=== PATIENT | male | born 1970 | race Caucasian/White ===

== ENCOUNTER 2018-12-08 22:18 | Observation (INO) | payer OTHER ==
[2018-12-08] MEDS ORDERED: ASPIRIN 81 MG CHEWABLE TABLET ONE (22:47)
[2018-12-08] MEDS ORDERED: NITROGLYCERIN 0.4 MG/TAB SL ONE (22:48)
[2018-12-08 22:56] LABS: Absolute Lymphocytes (CBC) 2.5 K/uL (0.7-4.9); Basophils % 0.6 % (0-1.3); Hematocrit 39.9 % (39.6-49.0); Lymphocytes % 31.2 % (15.3-44.8); MPV 9.1 fL (7.6-11.3); RBC Red Blood Cell Count 4.53 M/uL (4.33-5.43)
[2018-12-08 23:16] LABS: BUN Blood Urea Nitrogen 15 mg/dL (7-18); Bicarbonate 27 mmol/L (21-32); Glucose Level 138 mg/dL (74-106); NT PRO-BNP 53 pg/mL (<125); Potassium 3.8 mmol/L (3.5-5.1); Sodium Level 141 mmol/L (136-145); Troponin (Emerg Dept Use Only) < 0.02 ng/mL (0.0-0.045)
[2018-12-08] MEDS ORDERED: NA CHLORIDE 0.9% 500 ML ONE (23:34)
--- NOTE | 2018-12-08 23:43 | ER ---
Nurse's Notes [facility] Name: Roger Jonas Age: 48 yrs Sex: Male : 1970 Arrival Date: 12/08/2018 Time: 22:18 Bed 6 Private MD: Diagnosis: Chest pain, unspecified Presentation: 12/08 22:20 Presenting complaint: Patient states: that he is having severe chest pain that radiates fc to his back and left shoulder. Originally started at 1700 and then got somewhat better. Came back strong at 2115. Positive for shortness of breath and nausea, denies any vomiting. Transition of care: patient was not received from another setting of care. Onset of symptoms was December 08, 2018 at 17:00. Risk Assessment: Do you want to hurt yourself or someone else? Patient reports no desire to harm self or others. Initial Sepsis Screen: Does the patient meet any 2 criteria? No. Patient's initial sepsis screen is negative. Does the patient have a suspected source of infection? No. Patient's initial sepsis screen is negative. Care prior to arrival: None. 22:20 Method Of Arrival: Wheelchair 22:20 Acuity: DANIEL 2 fc Historical: - Allergies: 22:41 Percocet; fc - Home Meds: 22:41 Lyrica 150 mg Oral 1 in am, 1 at noon and 2 at night [Active]; lamotrigine 100 mg oral fc tr24 nightly [Active]; basaglar 25 unit nightly [Active]; aspirin 325 mg Oral TbEC 1 tab once daily [Active]; lisinopril 5 mg Oral tab 1 tab twice a day [Active]; glimepiride 2 mg Oral tab 1 tab once daily [Active]; atorvastatin 40 mg oral tab 1 tab once daily [Active]; quetiapine 50 mg oral tab 1 in am and 2 at night [Active]; Coreg 3.125 mg Oral tab 1 tab 2 times per day [Active]; omeprazole 20 mg Oral cpDR 1 cap once daily [Active]; - PMHx: 22:41 Depression; Hypertension; High Cholesterol; GERD; CAD; CHF; Myocardial infarction; fc - PSHx: 22:41 left shoulder; left knee; Hernia repair; Appendectomy; fc - Immunization history:: Last tetanus immunization: up to date. - Social history:: Smoking status: Patient/guardian denies using tobacco, Patient/guardian denies using alcohol, street drugs. - Ebola Screening: : Patient negative for fever greater than or equal to 101.5 degrees Fahrenheit, and additional compatible Ebola Virus Disease symptoms Patient denies exposure to infectious person Patient denies travel to an Ebola-affected area in the 21 days before illness onset. - Family history:: not pertinent. - Hospitalizations: : No recent hospitalization is reported. Screenin:20 Abuse screen: Denies threats or abuse. Nutritional screening: No deficits noted. fc Tuberculosis screening: No symptoms or risk factors identified. Fall Risk None identified. Assessment: 23:39 General: Appears in no apparent distress. uncomfortable, Behavior is calm, cooperative, tl1 appropriate for age. Pain: Complains of pain in anterior aspect of left upper chest and left breast Pain radiates to back and left arm Pain currently is 7 out of 10 on a pain scale. Quality of pain is described as sharp, shooting, Pain began approx 6 hours BACKER UP Is continuous. Neuro: Level of Consciousness is awake, alert, obeys commands, Oriented to person, place, time, situation. Cardiovascular: Capillary refill < 3 seconds JVD is absent Patient's skin is warm and dry. Pulses are all present. Chest pain is described as severe, quality is sharp, stabbing, is located in left radiates to left arm(s) back began approx 6 hours BACKER UP. Respiratory: Reports shortness of breath at rest Airway is patent Trachea midline Respiratory effort is even, unlabored, Respiratory pattern is regular, Breath sounds are clear bilaterally. GI: Abdomen is round obese, Bowel sounds present X 4 quads. Abd is soft and non tender X 4 quads. Reports nausea. : No signs and/or symptoms were reported regarding the genitourinary system. EENT: No signs and/or symptoms were reported regarding the EENT system. 12/09 00:30 Reassessment: Patient appears in no apparent distress at this time. Patient is alert, lp1 oriented x 3, equal unlabored respirations, skin warm/dry/pink. Patient aware of admission. Vital Signs: 12/08 22:20 BP 126 / 71; Pulse 71; Resp 18; Temp 98.1(O); Pulse Ox 99% on R/A; Weight 152.86 kg fc (R); Height 5 ft. 7 in. (170.18 cm) (R); Pain 8/10; 22:56 BP 110 / 59; Pulse 72; Resp 16; Pulse Ox 97% ; Pain 6/10; tl1 23:38 BP 110 / 62; Pulse 73; Resp 17; Pulse Ox 98% on R/A; Pain 6/10; tl1 12/09 00:30 BP 112 / 74; Pulse 60; Resp 18; Pulse Ox 98% on R/A; lp1 12/08 22:20 Body Mass Index 52.78 (152.86 kg, 170.18 cm) ED Course: 12/08 22:18 Patient arrived in ED. am2 22:20 Arm band placed on Patient placed in an exam room, on a stretcher. fc 22:20 Patient has correct armband on for positive identification. Placed in gown. Bed in low fc position. Call light in reach. Side rails up X2. gas leak tester on. Pulse ox on. NIBP on. 22:20 No provider procedures requiring assistance completed. fc 22:25 Stas Davis MD is Attending Physician. rn 22:27 Abimbola Murrell, GRETEL is Primary Nurse. lp1 22:34 Triage completed. fc 22:37 EKG done, by ED staff, reviewed by Stas Davis MD. ag4 22:53 XRAY Chest (1 view) In Process Unspecified. EDMS 22:55 Inserted saline lock: 20 gauge in right antecubital area, using aseptic technique. tl1 Blood collected. Patient maintains SpO2 saturation greater than 95% on room air. 23:42 Mor Sykes DO is Hospitalizing Provider. rn 12/09 00:47 Patient admitted, IV remains in place. fc Administered Medications: 12/08 22:49 Drug: Nitroglycerin 0.4 mg Route: Sublingual; tl1 23:00 Follow up: Response: No adverse reaction; No change in condition; Blood pressure is tl1 lowered 22:49 Drug: Aspirin Chewable Tablet 324 mg Route: PO; tl1 23:30 Follow up: Response: No adverse reaction; No change in condition tl1 23:38 Drug: NS 0.9% 500 ml Route: IV; Rate: bolus; Site: right antecubital; tl1 12/09 00:08 Follow up: IV Status: Completed infusion; IV Intake: 500ml tl1 Intake: 00:08 IV: 500ml; Total: 500ml. tl1 Outcome: 12/08 23:42 Decision to Hospitalize by Provider. rn 12/09 00:46 Admitted to Tele accompanied by tech, room 213, with chart, Report called to Ban holguin Condition: good Discharge instructions given to patient, family, Instructed on the need for admit, Demonstrated understanding of instructions. 01:18 Patient left the ED. tl1 Signatures: Dispatcher [employer] EDMargaret Reyes RN RN Stas Diaz MD MD rn Pena, Laura, RN RN lp1 Marifer Beth RN RN tl1 Elsa Rojo Adan ag4
--- NOTE | 2018-12-08 23:43 | EDPHYS ---
Physician Documentation [facility] Name: Roger Jonas Age: 48 yrs Sex: Male : 1970 Arrival Date: 12/08/2018 Time: 22:18 Bed 6 Private MD: ED Physician Stas Davis HPI: 12/08 22:38 This 48 yrs old Male presents to ER via Wheelchair with complaints of Chest rn Pain > 30 y/o. 22:38 The patient or guardian reports chest pain that is located primarily in the substernal rn area. Onset: today. The pain radiates to the left shoulder, Associated signs and symptoms: The patient has no apparent associated signs or symptoms, Pertinent negatives: abdominal pain, diaphoresis, near syncope, palpitations, shortness of breath, syncope, vomiting. The chest pain is described as a heaviness. Duration: The patient or guardian reports multiple episodes, that are intermittent. Modifying factors: The symptoms are alleviated by nothing. the symptoms are aggravated by nothing. Severity of pain: At its worst the pain was mild in the emergency department the pain is unchanged. The patient has experienced similar episodes in the past. Reports hx of CAD, reports increase in chest pain today, not completely going away, no fever/cough/sob/abd pain, + radiation to left shoulder and back. . Historical: - Allergies: 22:41 Percocet; fc - Home Meds: 22:41 Lyrica 150 mg Oral 1 in am, 1 at noon and 2 at night [Active]; lamotrigine 100 mg oral fc tr24 nightly [Active]; basaglar 25 unit nightly [Active]; aspirin 325 mg Oral TbEC 1 tab once daily [Active]; lisinopril 5 mg Oral tab 1 tab twice a day [Active]; glimepiride 2 mg Oral tab 1 tab once daily [Active]; atorvastatin 40 mg oral tab 1 tab once daily [Active]; quetiapine 50 mg oral tab 1 in am and 2 at night [Active]; Coreg 3.125 mg Oral tab 1 tab 2 times per day [Active]; omeprazole 20 mg Oral cpDR 1 cap once daily [Active]; - PMHx: 22:41 Depression; Hypertension; High Cholesterol; GERD; CAD; CHF; Myocardial infarction; fc - PSHx: 22:41 left shoulder; left knee; Hernia repair; Appendectomy; fc - Immunization history:: Last tetanus immunization: up to date. - Social history:: Smoking status: Patient/guardian denies using tobacco, Patient/guardian denies using alcohol, street drugs. - Ebola Screening: : Patient negative for fever greater than or equal to 101.5 degrees Fahrenheit, and additional compatible Ebola Virus Disease symptoms Patient denies exposure to infectious person Patient denies travel to an Ebola-affected area in the 21 days before illness onset. - Family history:: not pertinent. - Hospitalizations: : No recent hospitalization is reported. ROS: 22:38 Constitutional: Negative for fever, chills, and weight loss, Eyes: Negative for injury, rn pain, redness, and discharge, Neck: Negative for injury, pain, and swelling, Cardiovascular: Negative for palpitations, and edema, Respiratory: Negative for shortness of breath, cough, wheezing, and pleuritic chest pain, Abdomen/GI: Negative for abdominal pain, nausea, vomiting, diarrhea, and constipation, MS/Extremity: Negative for injury and deformity, Skin: Negative for injury, rash, and discoloration, Neuro: Negative for headache, weakness, numbness, tingling, and seizure. Exam: 22:38 Constitutional: Overweight male, no acute distress Head/Face: Normocephalic, rn atraumatic. Eyes: Pupils equal round and reactive to light, extra-ocular motions intact. Lids and lashes normal. Conjunctiva and sclera are non-icteric and not injected. Cornea within normal limits. Periorbital areas with no swelling, redness, or edema. Cardiovascular: Regular rate and rhythm. No pulse deficits. Respiratory: Lungs have equal breath sounds bilaterally, clear to auscultation. No increased work of breathing, no retractions or nasal flaring. Abdomen/GI: soft, non-tender MS/ Extremity: Pulses equal, no cyanosis. Neurovascular intact. Full, normal range of motion. Equal circumference. Neuro: Awake and alert, GCS 15, oriented to person, place, time, and situation. Cranial nerves II-XII grossly intact. Motor strength 5/5 in all extremities. Sensory grossly intact. Vital Signs: 22:20 BP 126 / 71; Pulse 71; Resp 18; Temp 98.1(O); Pulse Ox 99% on R/A; Weight 152.86 kg fc (R); Height 5 ft. 7 in. (170.18 cm) (R); Pain 8/10; 22:56 BP 110 / 59; Pulse 72; Resp 16; Pulse Ox 97% ; Pain 6/10; tl1 23:38 BP 110 / 62; Pulse 73; Resp 17; Pulse Ox 98% on R/A; Pain 6/10; tl1 12/09 00:30 BP 112 / 74; Pulse 60; Resp 18; Pulse Ox 98% on R/A; lp1 12/08 22:20 Body Mass Index 52.78 (152.86 kg, 170.18 cm) fc MDM: 12/08 22:25 Patient medically screened. rn 23:40 Differential diagnosis: acute myocardial infarction, acute pericarditis, coronary rn artery disease stable angina, unstable angina. The patient was given aspirin in the Emergency Department. Data reviewed: vital signs, nurses notes, lab test result(s), EKG, radiologic studies, plain films, and as a result, I will admit patient. Counseling: I had a detailed discussion with the patient and/or guardian regarding: the historical points, exam findings, and any diagnostic results supporting the discharge/admit diagnosis, lab results, radiology results, the need for further work-up and treatment in the hospital. Response to treatment: the patient's symptoms have mildly improved after treatment, and as a result, I will admit patient. Admission orders: after a detailed discussion of the patient's condition and case, the admit orders are written by me. ED course: Pt with known CAD and CHF, HTN/HLD, previous UT, will admit given new chest pain radiating to left shoulder/back. No ischemic changes on ECG. . 12/08 22:35 Order name: Basic Metabolic Panel; Complete Time: 23:39 rn 12/08 22:35 Order name: CBC with Diff; Complete Time: 23:39 rn 12/08 22:35 Order name: NT PRO-BNP; Complete Time: 23:39 rn 12/08 22:35 Order name: Troponin (emerg Dept Use Only); Complete Time: 23:39 rn 12/08 22:35 Order name: XRAY Chest (1 view) rn 12/08 22:35 Order name: EKG; Complete Time: 22:36 rn 12/08 22:35 Order name: Cardiac monitoring; Complete Time: 22:55 rn 12/08 22:35 Order name: EKG - Nurse/Tech; Complete Time: 22:37 rn 12/08 22:35 Order name: IV Saline Lock; Complete Time: 22:55 rn 12/08 22:35 Order name: Labs collected and sent; Complete Time: 22:55 rn 12/08 22:35 Order name: O2 Per Protocol; Complete Time: 22:55 rn 12/08 22:35 Order name: O2 Sat Monitoring; Complete Time: 22:55 rn Administered Medications: 22:49 Drug: Nitroglycerin 0.4 mg Route: Sublingual; tl1 23:00 Follow up: Response: No adverse reaction; No change in condition; Blood pressure is tl1 lowered 22:49 Drug: Aspirin Chewable Tablet 324 mg Route: PO; tl1 23:30 Follow up: Response: No adverse reaction; No change in condition tl1 23:38 Drug: NS 0.9% 500 ml Route: IV; Rate: bolus; Site: right antecubital; tl1 12/09 00:08 Follow up: IV Status: Completed infusion; IV Intake: 500ml tl1 Disposition: 12/08/18 23:42 Hospitalization ordered by Mor Sykes for Observation. Preliminary diagnosis is Chest pain, unspecified. - Bed requested for Telemetry/MedSurg (observation). - Status is Observation. tl1 - Condition is Stable. - Problem is new. - Symptoms have improved. UTI on Admission? No Signatures: Dispatcher [employer] EDMS Renetta Darby RN RN mw Chretien, Felicia, RN RN fc Nieto, Roman, MD MD rn Lasagna, Tonya RN RN tl1 Corrections: (The following items were deleted from the chart) 00:30 12/08 23:42 Hospitalization Ordered by Mor Sykes DO for Observation. Preliminary mw diagnosis is Chest pain, unspecified. Bed requested for Telemetry/MedSurg (observation). Status is Observation. Condition is Stable. Problem is new. Symptoms have improved. UTI on Admission? No. rn 12/09 01:18 00:30 12/08/2018 23:42 Hospitalization Ordered by Mor Sykes DO for Observation. tl1 Preliminary diagnosis is Chest pain, unspecified. Bed requested for Telemetry/MedSurg (observation). Status is Observation. Condition is Stable. Problem is new. Symptoms have improved. UTI on Admission? No. mw
--- NOTE | 2018-12-09 00:36 | P.HP ---
Certification for Inpatient Patient admitted to: Observation With expected LOS: <2 Midnights Patient will require the following post-hospital care: None Practitioner: I am a practitioner with admitting privileges, knowledge of patient current condition, hospital course, and medical plan of care. Services: Services provided to patient in accordance with Admission requirements found in Title 42 Section 412.3 of the Code of Federal Regulations Patient History Date of Service: 12/09/18 Primary Care Provider: Lily Silver NP Reason for admission: Chest pain History of Present Illness: 48-year-old male presented to the emergency room with chest pain. Patient with underlying history of CAD without stent, hypertension, diabetes mellitus type 2 non-insulin dependent with diabetic neuropathy, hyperlipidemia, GERD, obstructive sleep apnea, CHF and depression. Patient presented to the ER with chest pain. This started around 4:00 p.m.. He was mainly to the center of the chest. It radiated through the back to the shoulders. It also radiated to the left arm. It was associated with some shortness of breath and palpitation. Patient recently moved from [place] early this year. He reports having history of AK 3 years ago. No stent was required. He also reported history of CHF with prior ejection fraction around 30% 3 years ago. He reports repeat echocardiogram done in [place] last year was around 50%. In the ER patient evaluated. Patient was given nitro with some improvement. Vital signs stable. Hemoglobin 13.4, sodium 141, potassium 3.8. BUN of 15, creatinine 0.9 with a GFR of 81. Glucose 138. BNP unremarkable. Troponin unremarkable. No significant EKG changes noted. Patient was admitted for observation and further evaluation. When I saw the patient in ER, he appeared comfortable. Home medications list reviewed: Yes - Past Medical/Surgical History Diabetic: Yes -: Diabetes mellitus type 2, non-insulin dependent -: Diabetic neuropathy -: Hypertension -: Hyperlipidemia -: CAD with no prior stent -: Depression -: Obstructive sleep apnea -: Systolic CHF -: Obesity -: Left shoulder repair -: Left knee surgery -: Hernia repair -: Appendectomy Psychosocial/ Personal History: Patient is - Family History Mother -: Heart disease - Social History Smoking Status: Never smoker Alcohol use: Yes CD- Drugs: No Caffeine use: Yes Place of Residence: Home Review of Systems General: As per HPI Eyes: Unremarkable ENT: Unremarkable Respiratory: Shortness of Breath, As per HPI Cardiovascular: Chest Pain, Palpitations, As per HPI Gastrointestinal: Unremarkable Genitourinary: Unremarkable Musculoskeletal: Unremarkable Integumentary: Unremarkable Neurological: Unremarkable Lymphatics: Unremarkable Physical Examination - Physical Exam General: Alert, In no apparent distress, Oriented x3, Cooperative HEENT: Atraumatic, Normocephalic, PERRLA, Mucous membr. moist/pink Neck: Supple, No Thyromegaly Respiratory: Clear to auscultation bilaterally, Normal air movement Cardiovascular: Normal pulses, Regular rate/rhythm Gastrointestinal: Normal bowel sounds, Soft and benign, Non-distended, No tenderness, No masses, No rebound, No guarding Musculoskeletal: No erythema, No tenderness, No warmth Integumentary: No tenderness/swelling, No erythema, No warmth, No cyanosis Neurological: Normal speech, Normal strength at 5/5 x4 extr, Normal tone, Normal affect - Studies Laboratory Data (last 24 hrs) 12/08/18 22:35: WBC 8.1, Hgb 13.4 L, Hct 39.9, Plt Count 175 12/08/18 22:35: Sodium 141, Potassium 3.8, BUN 15, Creatinine 0.98, Glucose 138 H Assessment and Plan - Plan Impression: Chest pain with history of CAD and AK requiring no stent Hypertension Diabetes mellitus type 2, [id number] Diabetic neuropathy Hyperlipidemia Obstructive sleep apnea GERD History of systolic CHF Depression Obesity Plan: Chest pain with history of CAD and AK requiring no stent: Patient will be admitted for observation and further evaluation. Will monitor cardiac enzymes. Will continue monitor on telemetry. Will place on DVT prophylaxis-Lovenox. Will continue with aspirin, carvedilol and lisinopril. Will provide nitroglycerin as needed. Will keep the patient NPO at this time in anticipation for cardiac evaluation. Cardiology has been consulted. Await further recommendation. Heart score calculated-4. Patient with multiple risk factors. Patient may require further cardiac evaluation. Echocardiogram ordered. Outpatient versus inpatient evaluation to be considered. Likely discharge within 24 hr if workup unremarkable and cleared by cardiology. Daytime hospitalist team will continue his care. Hypertension: Restart home medication of lisinopril 5 mg 1 pill twice daily and carvedilol 3.25 mg 1 pill twice daily. Will adjust accordingly. Diabetes mellitus type 2, [id number]: Will provide insulin sliding scale and Accu-Cheks. Will hold off on his oral medication. Will obtain A1c Diabetic neuropathy: Will continue with his home medication Lyrica 150 mg every a.m. and noontime. Patient also takes 300 mg at night. Hyperlipidemia: Continue with Lipitor 40 mg daily. Will obtain fasting lipid Obstructive sleep apnea: Patient reports history of sleep apnea. Recommend follow up with PCP to further monitor and address. Patient will likely require sleep study to obtain CPAP machine. GERD: Will provide medication. History of systolic CHF: Patient reports having ejection fraction around 30% 3 years ago. He reports last echocardiogram done a year ago was showing ejection fraction around 50%. No evidence of acute CHF at this time. Echocardiogram obtained. Depression: Continue home medication Lamictal 100 mg at bedtime Obesity: Will calculate BMI. Will address lifestyle modification education. Discharge Plan: Home Plan to discharge in: 24 Hours - Advance Directives Does patient have a Living Will: No Does patient have a Durable POA for Healthcare: No - Code Status/Comfort Care Code Status Assessed: Yes (Patient is full code) Time Spent Managing Pts Care (In Minutes): 55
[2018-12-09] MEDS ORDERED: NITROGLYCERIN 0.4 MG/TAB SL PRN (01:05)
[2018-12-09] MEDS ORDERED: TRAMADOL HCL 50 MG TAB PO PRN (01:05)
[2018-12-09] MEDS ORDERED: ONDANSETRON 4 MG/2 ML VIAL IV PRN (01:05)
[2018-12-09] MEDS ORDERED: ACETAMINOPHEN 500 MG TAB PO PRN (01:05)
--- NOTE | 2018-12-09 05:30 | EKG ---
Test Date: 2018-12-08 Test Time: 22:26:32 Cafeteria Server: [id number] MEASUREMENT RESULTS: Intervals: Rate: 68 MN: 156 QRSD: 112 QT: 426 QTc: 452 [place]k: P: 21 MN: 156 QRS: 53 T: 41 INTERPRETIVE STATEMENTS: Normal sinus rhythm Normal ECG No previous ECG available for comparison Electronically Signed On 12-09-18 05:29:47 CDT by Michael Maloney
[2018-12-09] MEDS: CARVEDILOL 3.125 MG TAB PO SCH ×2 (06:00→17:12)
[2018-12-09] MEDS: PREGABALIN 150 MG CAP PO SCH ×2 (06:08→12:46)
[2018-12-09 06:19] LABS: CKMB Creatine Kinase MB 1.2 ng/mL (0.3-3.6); Creatine Phosphokinase 87 U/L (39-308); HDL Cholesterol 31 mg/dL (40-60); LDL Cholesterol, Calculated 50 (<130); Troponin I < 0.02 ng/mL (0.0-0.045)
[2018-12-09] MEDS ORDERED: PANTOPRAZOLE 40MG TABLET PO SCH (06:30)
[2018-12-09] MEDS: INSULIN -REGULAR HUMAN 50 UNIT/0.5 ML ML SQ SCH ×3 (07:30→16:20)
--- NOTE | 2018-12-09 08:33 | RAD REPORT ---
EXAM DESCRIPTION: Marlena Single View12/08/2018 10:53 pm CLINICAL HISTORY: Chest pain COMPARISON: none FINDINGS: Mild prominence of the right hilum Lungs otherwise appear clear. Heart is normal size IMPRESSION: Mild prominence of the right hilum. This may all represent confluence of pulmonary vesse ls. It is recommended that the patient have PA and lateral chest series is recommended for further ev aluation
[2018-12-09] MEDS ORDERED: LISINOPRIL 5 MG TAB PO SCH (09:00)
[2018-12-09] MEDS ORDERED: ASPIRIN EC 81 MG TAB PO SCH (09:00)
[2018-12-09] MEDS ORDERED: POTASSIUM CL SA 10 MEQ TAB PO ONE (09:00)
[2018-12-09] MEDS ORDERED: ENOXAPARIN 40 MG/0.4 ML SQ SCH (09:00)
[2018-12-09 09:33] LABS: Urine Appearance CLEAR; Urine Bilirubin NEGATIVE (NEG); Urine Blood NEGATIVE (NEG); Urine Color YELLOW; Urine Glucose NEGATIVE (NEG); Urine Protein NEGATIVE (NEG); Urine Specific Gravity >=1.030 (1.005-1.030); Urine pH 5.5 (5.0-7.0)
[2018-12-09 09:34] LABS: Urine Microscopic Reflex NO UMIC
[2018-12-09 09:43] LABS: Barbiturates NEGATIVE (NEGATIVE); Benzodiazepines NEGATIVE (NEGATIVE); Cocaine NEGATIVE (NEGATIVE); METHAMPHETAM NEGATIVE (NEGATIVE); Methadone NEGATIVE (NEGATIVE); Opiates NEGATIVE (NEGATIVE); Phencyclidine NEGATIVE (NEGATIVE); THC Cannibis NEGATIVE (NEGATIVE)
[2018-12-09 13:24] LABS: CKMB Creatine Kinase MB 1.5 ng/mL (0.3-3.6); Creatine Phosphokinase 80 U/L (39-308); Troponin I < 0.02 ng/mL (0.0-0.045)
--- NOTE | 2018-12-09 16:14 | CON ---
Date of Consultation: 12/09/[address] Pacheco's service on 12/09/2018. I saw the patient on 12/09/2018. Reason For Consultation: Chest pain. History Of Present Illness: Mr. Jonas is a 48-year-old male, who actually just moved from [facility]. 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 Apparently, he has had a history of congestive heart failure. At one point, his ejection fraction was 25%. According to him, his last echo showed an ejection fraction of 50%. He has a history of diabetes, hypertension, dyslipidemia, gastroesopha geal reflux disease. According to the patient, he has had multiple heart catheterizations and stress test, showing no coronary artery disease. He came in with atypical chest pain, pressure-like, radia ting to the back. No nausea, vomiting, diaphoresis, PND, orthopnea, pedal edema, palpitations, or sy ncope. He has already ruled out for an SD. Past Medical History: As stated above. Allergies: HE IS ALLERGIC TO TYLENOL AND OXYCODONE. Review of Systems: Negative. Social History: Negative. Family History: Negative. Medications: Coreg, Lipitor, glimepiride, lisinopril, and Lyrica. Physical Examination: Vital Signs: He weighed 340 pounds. Vital signs were stable. He was in sinus rhythm. HEENT: Negative. NECK: Supple without bruit, lymphadenopathy, JVD, or thyromegaly. Chest: Clear to auscultation and percussion. CARDIAC: Revealed a regular rhythm and rate without any murmurs, gallops, or rubs. Abdomen: Obese, but benign. Extremities: Revealed trace edema. No clubbing, no cyanosis. Diagnostic Data: Normal. Impression And Plan: Atypical chest pain in a patient with history of gastroesophageal reflux diseas e, multiple catheterizations and stress tests that were negative. He has ruled out for a myocardial infarction and I am comfortable with him going home and may be having another outpatient stress test. He has an echocardiogram that is pending. We will see what that shows and what his ejection fracti on is. Apparently, patient has quit taking all his medication for quite some time and he just resume d them and he will be seeing Ms. Melany Silver, physician shampoo assistant in the near future. His other issu es including dyslipidemia, hypertension, diabetes, and gastroesophageal reflux seemed to be stable. We will keep an eye on his ejection fraction as far as congestive heart failure is concerned. He martin l need to work on his weight in the near future. Hopefully, we will be seeing him in the office in t he next couple of weeks. FAITH/GEORGES Voice ID: [id number] Report ID: [id number]
[2018-12-09] MEDS ORDERED: ATORVASTATIN 40 MG TAB PO SCH (21:00)
[2018-12-09] MEDS ORDERED: PREGABALIN 150 MG CAP PO SCH (21:00)
[2018-12-09] MEDS ORDERED: lamoTRIgine 100 MG TAB PO SCH (21:00)
--- NOTE | 2018-12-10 07:42 | ECHO ---
HEIGHT: 5 ft 7 in WEIGHT: 340 lb 4.8 oz DATE OF STUDY: 12/09/[address]: Mor Sykes DO 2-DIMENSIONAL: YES M.MODE: YES DOPPLER: YES COLOR FLOW: YES TDS: PORTABLE: DEFINITY: BUBBLE STUDY: DIAGNOSIS: CHEST PAIN, CORNARY ARTERY DISEASE CARDIAC HISTORY: CATHERIZATION: YES SURGERY: NO PROSTHETIC VALVE: NO PACEMAKER: NO MEASUREMENTS (cm) DIASTOLIC (NORMALS) SYSTOLIC (NORMALS) IVSd 0.9 (0.6-1.2) LA Diam 3.7 (1.9-4.0) LVEF 57% LVIDd 4.7 (3.5-5.7) LVIDs 3.3 (2.0-3.5) %FS 30% LVPWd 1.1 (0.6-1.2) Ao Diam 3.1 (2.0-3.7) 2 DIMENSIONAL ASSESSMENT: RIGHT ATRIUM: NORMAL LEFT ATRIUM: NORMAL RIGHT VENTRICLE: NORMAL LEFT VENTRICLE: NORMAL TRICUSPID VALVE: NORMAL MITRAL VALVE: NORMAL PULMONIC VALVE: NORMAL AORTIC VALVE: NORMAL PERICARDIAL EFFUSION: NONE AORTIC ROOT: NORMAL LEFT VENTRICULAR WALL MOTION: NORMAL DOPPLER/COLOR FLOW: NORMAL COMMENTS: NORMAL 2-DIMENSIONAL ECHOCARDIOGRAM WITH DOPPLER. NO WALL MOTION ABNORMALITY. NO EFFUSION. TECHNOLOGIST: ANTONIETA MERCADO
== END 2018-12-09 17:17 | disposition home or self-care (01) ==
LOC: ER 22:18 → 2ND 12-09 00:21
PROVIDERS: ADMIT Family Medicine; ATTEND Family Medicine
DX: R07.89 Other chest pain (principal); I25.10 Atherosclerotic heart disease of native coronary artery without angina pectoris; I10 Essential (primary) hypertension; E11.40 Type 2 diabetes mellitus with diabetic neuropathy, unspecified; E78.5 Hyperlipidemia, unspecified; K21.9 Gastro-esophageal reflux disease without esophagitis; G47.33 Obstructive sleep apnea (adult) (pediatric); I11.0 Hypertensive heart disease with heart failure; I50.20 Unspecified systolic (congestive) heart failure; I25.2 Old myocardial infarction; F32.9 Major depressive disorder, single episode, unspecified; E66.9 Obesity, unspecified; Z68.43 Body mass index [BMI] 50.0-59.9, adult
CPT/HCPCS: 93005; 93306; 85025; 80048; 36415; 82550 ×2; 80061; 82962 ×3; 80307 ×8; 84443; 81003; 83036; 84484 ×3; 82553 ×2; 84439; 83880; 71045; 99285; J1650; G0378 ×2

== ENCOUNTER 2019-01-14 20:07 | Emergency (ER) | payer OTHER ==
--- OUTSIDE RECORDS SUMMARY | 2019-01-14 20:09 | XMS REPORT ---
:1970 Author Organization e[employer] Care Team Providers Name Role Phone Melany Silver Provider Role Unavailable Allergies, Adverse Reactions, Alerts Substance Reaction Event Type Percocet Burning and Itching Drug Allergy Problems Problem Type Condition Code Onset Dates Condition Status Problem Type 2 diabetes mellitus with E11.42 Active diabetic polyneuropathy Problem detention current use of insulin Z79.4 Active Problem Hx of migraine headaches Z86.69 Active Problem Chronic systolic congestive heart I50.22 Active failure Assessment Hx of idiopathic seizure Z87.898 Active Problem Idiopathic peripheral neuropathy G60.9 Active Problem Psoriasis L40.9 Active Problem Hx TIA/stroke w/o resid Z86.73 Active Problem Gastro-esophageal reflux disease K21.9 Active without esophagitis Problem Current mild episode of major F32.0 Active depressive disorder without prior episode Problem Hx of idiopathic seizure Z87.898 Active Assessment Chronic systolic congestive heart I50.22 Active failure Assessment Current mild episode of major F32.0 Active depressive disorder without prior episode Assessment Hx TIA/stroke w/o resid Z86.73 Active Assessment Gastro-esophageal reflux disease K21.9 Active without esophagitis Assessment Type 2 diabetes mellitus without E11.9 Active complication, without long-term current use of insulin Assessment Psoriasis L40.9 Active Problem Hx MRSA infection Z86.14 Active Assessment Idiopathic peripheral neuropathy G60.9 Active Problem Diaphragmatic hernia without K44.9 Active obstruction or gangrene Medications Medication Code Code Instructions Start End Status Dosage System Date Date Glimepiride ND 78410991218 2 MG Orally Active 1 tablet Once a day with breakfast or the first main meal of the day Lyrica ND 22329494516 150 MG Orally Active 1 capsule Once a day Pen [place] [facility] 49714529067 31G X 5 MM December 01, Active as directed 07/17" INvitro once a 2019 day Omeprazole ND 99553413161 20 MG Orally Active 1 capsule Once a day Carvedilol ND 51339784211 3.125 MG Orally Active as directed BID Lisinopril ND 63925546658 5 MG Orally Active 1 tablet Once a day Sertraline HCl [facility] 56127176376 100 MG Orally December 01, Active 1 tablet Once a day [address] [facility] 57160100320 50 MG Orally Active 1 tablet at Fumarate Once a day bedtime Lamotrigine ND 52551392696 100 MG Orally Active 1 tablet Once a day Basaglar [facility] 28392114289 100 UNIT/ML Active as directed KwikPen Subcutaneous once a day,.m Aspirin [facility] 65901136275 325 MG Orally Active 1 tablet Once a day Sertraline HCl [facility] 15225697294 50 MG Orally Active 1 tablet Once a day Atorvastatin [facility] 49429249117 40 MG Orally Active 1 tablet Calcium Once a day Results No Known Results Summary Purpose eClinicalWorks Submission
--- OUTSIDE RECORDS SUMMARY | 2019-01-14 20:09 | XMS REPORT | Continuity of Care Document ---
:[address] [facility] Address [address] [address] Care Team Providers Name Role Phone PROVIDER, NO PCP Primary Care Physician Unavailable Jonna Yoder Physician Allergies, Adverse Reactions, Alerts No allergy information available. Medications No medication information available. Problem List No problem information available. Procedures Procedure Date Status XR Hip Lt 2-3 View September 14, 2018 active Relevant Diagnostic Tests and/or Laboratory Data No known relevant diagnostic tests, laboratory data, and/or discharge summary. Hospital Discharge Instructions No known hospital discharge instructions. Encounters Encounter Facility Location Admit Date Discharge Date Attending Provider Departed [place] [facility] September 14, September 14, 2018 [facility] 2019 2:37am Ctr 12:18am Functional Status No known functional status. Immunizations No known immunizations. Payers Payer Name Policy Type Covered Covered Relationship Subscriber Subscriber Id Republican Republican Id UNINSURED Personal GERALD [id number] SELF Payment ([place] CHARD - No Insurance) Plan of Care No known plan of care. Social History No known social history. Vital Signs No known vital signs results.
--- OUTSIDE RECORDS SUMMARY | 2019-01-14 20:09 | XMS REPORT ---
:1970 Author Organization [facility] Address [address] [place] [address] [address] Care Team Providers Name Role Phone GERALD GOSS Unavailable Unavailable Problems This patient has no known problems. Allergies, Adverse Reactions, Alerts This patient has no known allergies or adverse reactions. Medications This patient has no known medications. Results Test Description Test Time Test Comments Text Results Atomic Results Result Comments Hematology 2018-08-07 23:41:00 Test Item Value Reference Range Comments Hematology (test code=WBCT) 6.9 thou/uL 4.8-10.8 Hematology (test code=RBCT) 4.86 mill/uL 4.70-6.10 Hematology (test code=HGBT) 13.6 g/dL 14.0-18.0 Hematology (test code=HCTT) 43.3 % 42.0-52.0 Hematology (test code=MCV) 89.2 fL 78.0-98.0 Hematology (test code=MCH) 27.9 pg 27.0-31.0 Hematology (test code=MCHC) 31.3 g/dL 32.0-36.0 Hematology (test code=RDW) 13.3 % 11.5-14.5 Hematology (test code=PLTT) 171 thou/uL 130-400 Hematology (test code=MPV) 7.8 fL 7.4-10.4 Hematology (test code=%NEUT) 59.3 % 42.0-75.0 Hematology (test code=%LYMPH) 29.7 % 21.0-51.0 Hematology (test code=%MONO) 8.7 % 0.0-10.0 Hematology (test code=%EOS) 1.2 % 0.0-10.0 Hematology (test code=%BASO) 1.1 % 0.0-1.0 Hematology (test code=NEUT#) 4.1 thou/uL 1.40-6.50 Hematology (test code=LYMPH#) 2.0 thou/uL 1.20-3.40 Hematology (test code=MONO#) 0.6 thou/uL 0.11-0.59 Hematology (test code=EOS#) 0.1 thou/uL 0.0-0.7 Hematology (test code=BASO#) 0.1 thou/uL 0.0-0.2 [id number] 23:40:00 Test Item Value Reference Range Comments Chemistry (test Less than 0.010 < 0.028 code=TROPI-R) ng/mL Reference Range 0.00 - 0.028 ng/mL Negative 0.029 - 0.29 ng/mL Indeterminate Greater or Equal to 0.3 ng/mL Strongly suggests AK [id number] 23:40:00 Test Item Value Reference Range Comments Chemistry (test code=NA-T) 138 mmol/L 136-145 Chemistry (test code=K-T) 4.3 mmol/L 3.5-5.1 Chemistry (test code=CL) 104 mmol/L 98-107 Chemistry (test code=CO2) 24 mmol/L 22-29 Chemistry (test code=ANGP) 14 mmol/L 10-20 Chemistry (test code=BUN) 12 mg/dL 8.9-20.6 Chemistry (test code=CREATT) 1.03 mg/dL 0.7-1.3 Chemistry (test 76 Reference Range for Estimated code=EGFRMDRD) GFR: Greater than 90 mL/min/1.73 m2NOTE:The MDRD equation has not been validated for use with theelderly (over 70 years of age), women, patientswith serious comorbid condition or persons with extremes ofbody size, muscle mass, or nutritional status. Chemistry (test code=GLU-T) 231 mg/dL 70-105 Chemistry (test code=CA) 9.1 mg/dL 7.8-10.44 Chemistry (test 0.4 mg/dL 0.2-1.2 code=TBILI-T) Chemistry (test code=TP) 6.9 g/dL 6.0-8.3 Chemistry (test code=ALB) 3.8 g/dL 3.5-5.0 Chemistry (test code=GLOB) 3.1 g/dL 2.4-3.5 Chemistry (test code=AG) 1.2 g/dL 1.2-2.2 Chemistry (test code=ALP) 88 U/L 40-150 Chemistry (test code=AST) 19 U/L 5-34 Chemistry (test code=ALT) 29 U/L 8-55
--- OUTSIDE RECORDS SUMMARY | 2019-01-14 20:09 | XMS REPORT ---
:1970 Author Organization eClinicalWorks Care Team Providers Name Role Phone Melany Silver Provider Role Unavailable Allergies No Known Allergies Problems Problem Type Condition Code Onset Dates Condition Status Problem Chronic systolic congestive heart I50.22 Active failure Problem Idiopathic peripheral neuropathy G60.9 Active Problem Psoriasis L40.9 Active Problem Current mild episode of major F32.0 Active depressive disorder without prior episode Medications Medication Code Code Instructions Start End Status Dosage System Date Date Levemir [facility] [id number] 100 UNIT/ML Dec 02, Active inject 30 FlexTouch Subcutaneous 2019 units subq daily daily; increase by 3 units every 5 days until fasting blood sugar is 100-120 Results No Known Results Summary Purpose [employer] Submission
[2019-01-14 20:52] LABS: Absolute Lymphocytes (CBC) 2.2 K/uL (0.7-4.9); Basophils % 0.7 % (0-1.3); Hematocrit 39.9 % (39.6-49.0); Lymphocytes % 25.8 % (15.3-44.8); MPV 8.9 fL (7.6-11.3)
[2019-01-14 20:58] LABS: Protime INR 0.9
[2019-01-14] MEDS ORDERED: LEVETIRACETAM 500 MG/5 ML VIAL IV ONE (21:00)
[2019-01-14] MEDS ORDERED: NA CHLORIDE 0.9% 1,000 ML ONE (21:00)
[2019-01-14] MEDS ORDERED: NA CHLORIDE 0.9% 100 ML IV ONE (21:00)
[2019-01-14 21:09] LABS: ALT/SGPT 26 U/L (12-78); AST/SGOT 15 U/L (15-37); Albumin 3.2 g/dL (3.4-5.0); Alkaline Phosphatase 105 U/L (45-117); BUN Blood Urea Nitrogen 17 mg/dL (7-18); Bicarbonate 24 mmol/L (21-32); Bilirubin Direct < 0.1 mg/dL (0-0.2); Bilirubin Total 0.3 mg/dL (0.2-1.0); Glucose Level 239 mg/dL (74-106); Potassium 3.9 mmol/L (3.5-5.1); Protein, Total 7.1 g/dL (6.4-8.2); Sodium Level 141 mmol/L (136-145)
[2019-01-14 21:28] LABS: NT PRO-BNP 41 pg/mL (<125); Troponin (Emerg Dept Use Only) < 0.02 ng/mL (0.0-0.045)
--- NOTE | 2019-01-14 22:57 | ER ---
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 said he was standing and convulsed and fell on his right side and sustained pain at the back of his right ear and right shoulder. last seizure episode was 4 years ago and he is not on seizure medicine since then. Transition of care: patient was not received from another setting of care. Onset of symptoms was January 14, 2019. Risk Assessment: Do you want to hurt yourself or someone else? Patient reports no desire to harm self or others. Initial Sepsis Screen: Does the patient meet any 2 criteria? No. Patient's initial sepsis screen is negative. Does the patient have a suspected source of infection? No. Patient's initial sepsis screen is negative. Care prior to arrival: None. 20:09 Method Of Arrival: EMS: [email or web address] mg2 20:09 Acuity: DANIEL 3 mg2 Historical: - Allergies: 20:16 Percocet; mg2 - Home Meds: 20:51 aspirin 325 mg Oral TbEC 1 tab once daily [Active]; atorvastatin 40 mg Oral tab 1 tab mg2 once daily [Active]; basaglar 25 unit nightly [Active]; Coreg 3.125 mg Oral tab 1 tab 2 times per day [Active]; glimepiride 2 mg Oral tab 1 tab once daily [Active]; lamotrigine 100 mg Oral tr24 nightly [Active]; lisinopril 5 mg Oral tab 1 tab twice a day [Active]; Lyrica 150 mg Oral 1 in am, 1 at noon and 2 at night [Active]; omeprazole 20 mg Oral cpDR 1 cap once daily [Active]; quetiapine 50 mg Oral tab 1 IN AM AND 2 AT NIGHT [Active]; - PMHx: 20:16 CAD; CHF; Depression; GERD; High Cholesterol; Hypertension; Myocardial infarction; mg2 - Immunization history:: Flu vaccine is up to date. - Social history:: Smoking status: Patient/guardian denies using tobacco, Patient/guardian denies using alcohol, street drugs, IV drugs. - Ebola Screening: : No symptoms or risks identified at this time. Screenin:48 Abuse screen: Denies threats or abuse. Denies injuries from another. Nutritional mg2 screening: No deficits noted. Tuberculosis screening: No symptoms or risk factors identified. Fall Risk Secondary diagnosis (15 points) seizures, IV access (20 points). Assessment: 20:48 General: Appears in no apparent distress. comfortable, Behavior is calm, cooperative. mg2 Pain: Complains of pain in behid the right ear and right shoulder Pain does not radiate. Pain currently is 5 out of 10 on a pain scale. Quality of pain is described as aching, Pain began suddenly, 1 hour ago. Is intermittent. Neuro: Level of Consciousness is awake, alert, obeys commands, Oriented to person, place, time, situation, Seizure activity Patient is post-ictal at this time. Cardiovascular: Capillary refill < 3 seconds Patient's skin is warm and dry. Respiratory: Airway is patent Respiratory effort is even, unlabored, Respiratory pattern is regular, symmetrical. GI: No signs and/or symptoms were reported involving the gastrointestinal system. : No signs and/or symptoms were reported regarding the genitourinary system. EENT: No signs and/or symptoms were reported regarding the EENT system. Derm: Skin is intact, is healthy with good turgor, Skin is pink, warm \T\ dry. normal. Musculoskeletal: Circulation, motion, and sensation intact. Capillary refill < 3 seconds. 21:08 Reassessment: Patient appears in no apparent distress at this time. Patient and/or aa1 family updated on plan of care and expected duration. Pain level reassessed. Patient is alert, oriented x 3, equal unlabored respirations, skin warm/dry/pink. Awaiting lab results; family at bedside. Vital Signs: 20:13 Pulse 100; Resp 18; Pulse Ox 99% on R/A; Weight 154.22 kg; Height 5 ft. 7 in. (170.18 mg2 cm); Pain 5/10; 21:08 BP 119 / 70; Pulse 94; Resp 20; Temp 98.5; Pulse Ox 99% on R/A; aa1 22:22 BP 126 / 90; Pulse 67; Resp 18; Pulse Ox 100% ; mg2 20:13 Body Mass Index 53.25 (154.22 kg, 170.18 cm) mg2 ED Course: 20:08 Patient arrived in ED. ag3 20:13 Triage completed. mg2 20:16 Arm band placed on. mg2 20:44 Evin Dee MD is Attending Physician. robert 20:48 No provider procedures requiring assistance completed. Maintain EMS IV. Dressing mg2 intact. Good blood return noted. Site clean \T\ dry. Gauge \T\ site: 20 \T\ RAC. IV is patent, is intact, with fluids infusing freely, with good blood return. 20:50 Patient has correct armband on for positive identification. 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 Pulse mg2 ox on. NIBP on. Door closed. Warm blanket given. 20:52 Rachid Goel, GRETEL is Primary Nurse. mg2 21:17 XRAY Chest (1 view) In Process Unspecified. EDMS 21:37 CT completed. Patient tolerated procedure well. Patient moved to CT. Patient moved back wv from CT. 21:46 CT Head C Spine In Process Unspecified. EDMS 22:55 John Billingsley MD is Referral Physician. robert 23:50 IV discontinued, intact, bleeding controlled, No redness/swelling at site. Pressure mg2 dressing applied. Administered Medications: 21:07 Drug: NS 0.9% 1000 ml Route: IV; Rate: 1 bolus; Site: right antecubital; aa1 21:07 Drug: Keppra 1000 mg Route: IV; Rate: per protocol; Site: right antecubital; aa1 23:13 Drug: Lyrica 300 mg Route: PO; mg2 23:21 Follow up: Response: No adverse reaction; Medication administered at discharge. mg2 23:21 Drug: [place] 10 mg-325 mg 1 tabs Route: PO; mg2 23:21 Follow up: Response: No adverse reaction; Medication administered at discharge. mg2 Point of Care Testing: Blood Glucose: 20:39 Blood Glucose: 237 mg/dL; mg2 Ranges: Outcome: 22:56 Discharge ordered by . robert 23:54 Patient left the ED. mw2 23:54 Discharged to home via wheelchair, with family. mg2 23:54 Condition: stable 23:54 Discharge instructions given to patient, family, Instructed on discharge instructions, mg2 follow up and referral plans. medication usage, Demonstrated understanding of instructions, follow-up care, medications, Prescriptions given X 1. Signatures: Dispatcher [employer] Kay Thapa RN RN aa1 Evin Dee MD MD cha Jordan, Sean Son 2 Rachid Goel RN RN mg2 Kadi Narayanan 3
--- NOTE | 2019-01-14 22:58 | EDPHYS ---
Physician Documentation [facility] Name: Roger Jonas Age: 48 yrs Sex: Male : 1970 Arrival Date: 01/14/2019 Time: 20:08 Bed 8 Private MD: ED Physician Evin Dee HPI: 01/14 20:57 This 48 yrs old Male presents to ER via EMS with complaints of Fall Injury. robert 20:57 Details of fall: The patient fell from an upright position, while standing. Associated [facility] injuries: The patient sustained injury to the head, contusion. Historical: - Allergies: 20:16 Percocet; mg2 - Home Meds: 20:51 aspirin 325 mg Oral TbEC 1 tab once daily [Active]; atorvastatin 40 mg Oral tab 1 tab mg2 once daily [Active]; basaglar 25 unit nightly [Active]; Coreg 3.125 mg Oral tab 1 tab 2 times per day [Active]; glimepiride 2 mg Oral tab 1 tab once daily [Active]; lamotrigine 100 mg Oral tr24 nightly [Active]; lisinopril 5 mg Oral tab 1 tab twice a day [Active]; Lyrica 150 mg Oral 1 in am, 1 at noon and 2 at night [Active]; omeprazole 20 mg Oral cpDR 1 cap once daily [Active]; quetiapine 50 mg Oral tab 1 IN AM AND 2 AT NIGHT [Active]; - PMHx: 20:16 CAD; CHF; Depression; GERD; High Cholesterol; Hypertension; Myocardial infarction; mg2 - Immunization history:: Flu vaccine is up to date. - Social history:: Smoking status: Patient/guardian denies using tobacco, Patient/guardian denies using alcohol, street drugs, IV drugs. - Ebola Screening: : No symptoms or risks identified at this time. ROS: 20:57 Constitutional: Negative for fever, chills, and weight loss, Eyes: Negative for injury, robert pain, redness, and discharge, ENT: Negative for injury, pain, and discharge, Neck: Negative for injury, pain, and swelling, Cardiovascular: Negative for chest pain, palpitations, and edema, Respiratory: Negative for shortness of breath, cough, wheezing, and pleuritic chest pain, Abdomen/GI: Negative for abdominal pain, nausea, vomiting, diarrhea, and constipation, Back: Negative for injury and pain, : Negative for injury, bleeding, discharge, and swelling, MS/Extremity: Negative for injury and deformity, Skin: Negative for injury, rash, and discoloration, Psych: Negative for depression, anxiety, suicide ideation, homicidal ideation, and hallucinations, Allergy/Immunology: Negative for hives, rash, and allergies, Endocrine: Negative for neck swelling, polydipsia, polyuria, polyphagia, and marked weight changes, Hematologic/Lymphatic: Negative for swollen nodes, abnormal bleeding, and unusual bruising. 20:57 Neuro: Positive for seizure activity. Exam: 20:57 Constitutional: This is a well developed, well nourished patient who is awake, alert, robert and in no acute distress. Head/Face: Normocephalic, atraumatic. Eyes: Pupils equal round and reactive to light, extra-ocular motions intact. Lids and lashes normal. Conjunctiva and sclera are non-icteric and not injected. Cornea within normal limits. Periorbital areas with no swelling, redness, or edema. ENT: Nares patent. No nasal discharge, no septal abnormalities noted. Tympanic membranes are normal and external auditory canals are clear. Oropharynx with no redness, swelling, or masses, exudates, or evidence of obstruction, uvula midline. Mucous membranes moist. Neck: Trachea midline, no thyromegaly or masses palpated, and no cervical lymphadenopathy. Supple, full range of motion without nuchal rigidity, or vertebral point tenderness. No Meningismus. Chest/axilla: Normal chest wall appearance and motion. Nontender with no deformity. No lesions are appreciated. Cardiovascular: Regular rate and rhythm with a normal S1 and S2. No gallops, murmurs, or rubs. Normal PMI, no JVD. No pulse deficits. Respiratory: Lungs have equal breath sounds bilaterally, clear to auscultation and percussion. No rales, rhonchi or wheezes noted. No increased work of breathing, no retractions or nasal flaring. Abdomen/GI: Soft, non-tender, with normal bowel sounds. No distension or tympany. No guarding or rebound. No evidence of tenderness throughout. Back: No spinal tenderness. No costovertebral tenderness. Full range of motion. Skin: Warm, dry with normal turgor. Normal color with no rashes, no lesions, and no evidence of cellulitis. MS/ Extremity: Pulses equal, no cyanosis. Neurovascular intact. Full, normal range of motion. Neuro: Awake and alert, GCS 15, oriented to person, place, time, and situation. Cranial nerves II-XII grossly intact. Motor strength 5/5 in all extremities. Sensory grossly intact. Cerebellar exam normal. Normal gait. Psych: Awake, alert, with orientation to person, place and time. Behavior, mood, and affect are within normal limits. Vital Signs: 20:13 Pulse 100; Resp 18; Pulse Ox 99% on R/A; Weight 154.22 kg; Height 5 ft. 7 in. (170.18 mg2 cm); Pain 5/10; 21:08 BP 119 / 70; Pulse 94; Resp 20; Temp 98.5; Pulse Ox 99% on R/A; aa1 22:22 BP 126 / 90; Pulse 67; Resp 18; Pulse Ox 100% ; mg2 20:13 Body Mass Index 53.25 (154.22 kg, 170.18 cm) mg2 MDM: 20:54 Patient medically screened. [facility] 22:54 Data reviewed: vital signs, nurses notes, lab test result(s), EKG, radiologic studies, robert plain films. 01/14 20:16 Order name: Acetaminophen; Complete Time: 22:52 [facility] 01/14 20:16 Order name: Basic Metabolic Panel; Complete Time: 22:52 [facility] 01/14 20:16 Order name: CBC with Diff; Complete Time: 22:52 [facility] 01/14 20:16 Order name: ETOH Level; Complete Time: 22:52 [facility] 01/14 20:16 Order name: Hepatic Function; Complete Time: 22:52 [facility] 01/14 20:16 Order name: PT-INR; Complete Time: 22:52 [facility] 01/14 20:16 Order name: Ptt, Activated; Complete Time: 22:52 [facility] 01/14 20:16 Order name: Salicylate; Complete Time: 22:52 [facility] 01/14 20:56 Order name: Magnesium; Complete Time: 22:52 [facility] 01/14 20:56 Order name: NT PRO-BNP; Complete Time: 22:52 [facility] 01/14 20:56 Order name: Troponin (emerg Dept Use Only); Complete Time: 22:52 [facility] 01/14 20:56 Order name: XRAY Chest (1 view) [facility] 01/14 20:56 Order name: CT Head C Spine [facility] 01/14 20:16 Order name: EKG; Complete Time: 20:18 [facility] 01/14 20:16 Order name: EKG - Nurse/Tech; Complete Time: 20:16 [facility] 01/14 20:16 Order name: IV Saline Lock; Complete Time: 20:16 [facility] 01/14 20:16 Order name: Labs collected and sent; Complete Time: 20:48 [facility] 01/14 20:56 Order name: Cardiac monitoring; Complete Time: 20:57 [facility] 01/14 20:56 Order name: O2 Per Protocol; Complete Time: 20:57 [facility] 01/14 20:56 Order name: O2 Sat Monitoring; Complete Time: 20:57 [facility] 01/14 20:56 Order name: Seizure Precautions; Complete Time: 20:57 [facility] Administered Medications: 21:07 Drug: NS 0.9% 1000 ml Route: IV; Rate: 1 bolus; Site: right antecubital; aa1 21:07 Drug: Keppra 1000 mg Route: IV; Rate: per protocol; Site: right antecubital; aa1 23:13 Drug: Lyrica 300 mg Route: PO; mg2 23:21 Follow up: Response: No adverse reaction; Medication administered at discharge. mg2 23:21 Drug: Happy 10 mg-325 mg 1 tabs Route: PO; mg2 23:21 Follow up: Response: No adverse reaction; Medication administered at discharge. mg2 Point of Care Testing: Blood Glucose: 20:39 Blood Glucose: 237 mg/dL; mg2 Ranges: Critical Glucose Levels:Adult <50 mg/dl or >400 mg/dl <40 mg/dl or >180 mg/dl Disposition: 01/14/19 22:56 Discharged to Home. Impression: Epileptic seizures related to external causes, Fall due to bumping against object, Type 2 diabetes mellitus. - Condition is Stable. - Discharge Instructions: Seizure, Adult, Seizure, Adult, [id number]. - Prescriptions for Keppra 500 mg Oral Tablet - take 1 tablet by ORAL route every 12 hours; 20 tablet. - Medication Reconciliation Form, Thank You Letter, Antibiotic Education, Prescription Opioid Use form. - Follow up: Private Physician; When: 2 - 3 days; Reason: Recheck today's complaints, Continuance of care, Re-evaluation by your physician. Follow up: John Billingsley; When: 2 - 3 days; Reason: Recheck today's complaints, Re-evaluation by your physician. - Problem is new. - Symptoms have improved. Signatures: Dispatcher [employer] EDKay Lee RN RN aa1 Evin Dee MD MD cha Westbrook, Sean mw2 Rachid Goel RN RN mg2 Corrections: (The following items were deleted from the chart) 23:54 22:56 01/14/2019 22:56 Discharged to Home. Impression: Epileptic seizures related to mw2 external causes; Fall due to bumping against object; Type 2 diabetes mellitus. Condition is Stable. Discharge Instructions: Seizure, Adult, Seizure, Adult, [id number]. Prescriptions for Keppra 500 mg Oral Tablet - take 1 tablet by ORAL route every 12 hours; 20 tablet. and Forms are Medication Reconciliation Form, Thank You Letter, Antibiotic Education, Prescription Opioid Use. Follow up: Private Physician; When: 2 - 3 days; Reason: Recheck today's complaints, Continuance of care, Re-evaluation by your physician. Follow up: John Billingsley; When: 2 - 3 days; Reason: Recheck today's complaints, Re-evaluation by your physician. Problem is new. Symptoms have improved. robert
[2019-01-14] MEDS ORDERED: HYDROCODONE/APAP 10/325 TAB ONE (23:04)
[2019-01-14] MEDS ORDERED: PREGABALIN 150 MG CAP PO ONE (23:11)
[2019-01-15 00:52] VITALS: TEMP 98.5
[2019-01-15 00:54] VITALS: BP 126/90; O2SAT 100
--- NOTE | 2019-01-15 08:59 | RAD REPORT ---
EXAM DESCRIPTION: Marlena Single View01/14/2019 9:15 pm CLINICAL HISTORY: Cough COMPARISON: December 2018 FINDINGS: The lungs appear clear of acute infiltrate. The heart is normal size IMPRESSION: No acute abnormalities displayed
--- NOTE | 2019-01-16 18:27 | EKG ---
Test Date: 2019-01-14 Test Time: 20:11:14 Hospitality Ambassador: DEMOND MEASUREMENT RESULTS: Intervals: Rate: 99 OH: 170 QRSD: 106 QT: 380 QTc: 487 [place]: P: 32 OH: 170 QRS: 46 T: 37 INTERPRETIVE STATEMENTS: Normal sinus rhythm Prolonged QT Abnormal ECG Compared to ECG 12/08/2018 22:26:32 Prolonged QT interval now present Electronically Signed On 01-16-19 18:23:14 CDT by dA Redman
--- NOTE | 2019-01-17 10:39 | RAD REPORT ---
EXAM DESCRIPTION: CT - Head C Spine Mpr Wo Con - 01/15/2019 1:46 am CLINICAL HISTORY: The patient is 48 years old and is Male; PAIN TECHNIQUE: Axial computed tomography images of the head/brain and cervical spine without intravenous contrast. Sagittal and coronal reformatted images were created and reviewed. This CT exam was pe rformed using one or more of the following dose reduction techniques: automated exposure control, a djustment of the mA and/or kV according to patient size, and/or use of iterative reconstruction techn ique. COMPARISON: No relevant prior studies available. FINDINGS: BRAIN: Unremarkable. No hemorrhage. No significant white matter disease. No edema. VENTRICLES: Unremarkable. No ventriculomegaly. SKULL: No acute fracture. SINUSES: Unremarkable as visualized. No acute sinusitis. MASTOID AIR CELLS: Unremarkable as visualized. No mastoid effusion. VERTEBRAE: The vertebral body heights and alignment are maintained. No acute fracture. DISCS/SPINAL CANAL/NEURAL FORAMINA: The intervertebral disc spaces are maintained. No spinal can al stenosis. SOFT TISSUES: The soft tissues are normal. IMPRESSION: No acute intracranial findings. No fracture or malalignment of the cervical spine Electronically signed by: Sherry Starr MD 01/14/2019 9:58 PM CDT Due to temporary technical issues with the PACS/Fluency reporting system, reports are being signed by the in house radiologist as a courtesy to ensure prompt reporting. The interpreting radiologist is f ully responsible for the content of the report.
== END 2019-01-14 23:54 | disposition home or self-care (01) ==
LOC: ER 20:07
DX: S00.93XA Contusion of unspecified part of head, initial encounter (principal); E11.9 Type 2 diabetes mellitus without complications; W18.00XA Striking against unspecified object with subsequent fall, initial encounter; Y93.9 Activity, unspecified; Y92.9 Unspecified place or not applicable; Z79.82 Long term (current) use of aspirin; Z88.5 Allergy status to narcotic agent; I10 Essential (primary) hypertension; E78.00 Pure hypercholesterolemia, unspecified; F32.9 Major depressive disorder, single episode, unspecified; I25.2 Old myocardial infarction; I50.9 Heart failure, unspecified
CPT/HCPCS: 93005; 85025; 80048; 36415; 80320; 83735; 80329 ×2; 85610; 82962; 80076; 85730; 84484; 83880; 70450; 72125; 71045; 96374; 99285; J1953; J7030

== ENCOUNTER 2019-01-26 16:01 | Emergency (ER) | payer OTHER ==
--- NOTE | 2019-01-26 17:37 | RAD REPORT ---
EXAM DESCRIPTION: RAD - Shoulder Left 2 View - 01/26/2019 5:09 pm CLINICAL HISTORY: Left shoulder pain status post fall FINDINGS: No fracture or dislocation is seen. moderate osteoarthritis AC joint
[2019-01-26] MEDS ORDERED: IBUPROFEN 400 MG TAB ONE (17:40)
[2019-01-26] MEDS ORDERED: ACETAMINOPHEN 325 MG TABLET ONE (17:40)
--- NOTE | 2019-01-26 17:52 | EDPHYS ---
Physician Documentation [facility] Name: Roger Jonas Age: 48 yrs Sex: Male : 1970 Arrival Date: 01/26/2019 Time: 16:05 Bed 14 Private MD: Unknown, Unknown ED Physician Todd Martin HPI: 01/26 16:50 This 48 yrs old Male presents to ER via Ambulatory with complaints of Burn, cp Shoulder Pain. 16:50 The patient presents with a burn as a result of hot grease, at work, is located on the cp left hand and left forearm. 16:50 Onset: The symptoms/episode began/occurred just prior to arrival. Burn type and cp severity: 1st degree:. Associated signs and symptoms: Pertinent positives: left shoulder pain, The patient did not suffer any apparent inhalation injury. Patient reports slipping without falling that caused hot grease to splash onto bare hand and forearm and covered chest. Patient reports when he caught himself from falling, he injured left shoulder. Historical: - Allergies: 16:20 Percocet; tw2 - Home Meds: 16:20 Keppra 500 mg Oral tab 1 tab 2 times per day [Active]; Zoloft 50 mg Oral tab 1 tab once tw2 daily [Active]; - PMHx: 16:20 CAD; CHF; Depression; GERD; Hypertension; High Cholesterol; Myocardial infarction; tw2 - Immunization history:: Adult Immunizations Last tetanus immunization: < 5 years ago. - Social history:: Smoking status: . - Ebola Screening: : Patient denies travel to an Ebola-affected area in the 21 days before illness onset. ROS: 17:00 Constitutional: Negative for body aches, chills, fever, poor PO intake. cp 17:00 Eyes: Negative for injury, pain, redness, and discharge. cp 17:00 Cardiovascular: Negative for chest pain, palpitations. 17:00 Respiratory: Negative for cough, shortness of breath, wheezing. 17:00 Abdomen/GI: Negative for abdominal pain, nausea, vomiting, and diarrhea. 17:00 MS/extremity: Positive for pain, tenderness, of the left shoulder, Negative for deformity, paresthesias. 17:00 Skin: Positive for burn, of the left hand and left forearm. 17:00 Neuro: Negative for loss of consciousness, numbness, syncope, weakness. 17:00 All other systems are negative. Exam: 17:05 Constitutional: The patient appears in no acute distress, alert, awake, cp non-diaphoretic, non-toxic, well developed, well nourished. 17:05 Head/Face: Normocephalic, atraumatic. cp 17:05 Eyes: Periorbital structures: appear normal, Conjunctiva: normal, Lids and lashes: appear normal, bilaterally. 17:05 ENT: External ear(s): are unremarkable, Nose: is normal, Mouth: is normal. 17:05 Chest/axilla: Inspection: normal, Palpation: crepitus, is not appreciated, tenderness, that is mild, of the left clavicle and anterior aspect of left upper chest. 17:05 Cardiovascular: Rate: normal, Rhythm: regular, Pulses: Pulses are 2+ in right radial artery and left radial artery. 17:05 Respiratory: the patient does not display signs of respiratory distress, Respirations: normal, no use of accessory muscles, no retractions, no splinting, no tachypnea, labored breathing, is not present, Breath sounds: are clear throughout, no decreased breath sounds, no stridor, no wheezing. 17:05 Abdomen/GI: Exam negative for discomfort, distension, guarding, Inspection: abdomen appears normal. 17:05 Back: pain, is absent, ROM is normal. 17:05 Musculoskeletal/extremity: ROM: limited passive range of motion due to pain, in the left shoulder, Joints: All joints are normal except the left shoulder displays painful range of motion, tenderness. 17:05 Skin: injury, burn(s), 1st degree burn injury covers approximately 2% of the total body surface area, and is located on the left hand and left forearm. Vital Signs: 16:19 BP 127 / 90; Pulse 105; Resp 17; Temp 98(TE); Pulse Ox 99% on R/A; Weight 151.95 kg tw2 (R); Height 5 ft. 7 in. (170.18 cm); Pain 8/10; 18:00 BP 122 / 88; Pulse 87; Resp 16; Temp 98.2; Pulse Ox 99% on R/A; Pain 3/10; sg 16:19 Body Mass Index 52.47 (151.95 kg, 170.18 cm) tw2 MDM: 16:34 Patient medically screened. cp 17:50 Data reviewed: vital signs, nurses notes, radiologic studies, plain films. cp 17:50 Test interpretation: by ED physician or midlevel provider: xrays of left shoulder cp negative for fracture. Counseling: I had a detailed discussion with the patient and/or guardian regarding: the historical points, exam findings, and any diagnostic results supporting the discharge/admit diagnosis, radiology results, the need for outpatient follow up, a family practitioner, to return to the emergency department if symptoms worsen or persist or if there are any questions or concerns that arise at home. Response to treatment: the patient's symptoms have mildly improved after treatment, and as a result, I will discharge patient. 17:50 ED course: VSS. Burn wounds cleaned and dressed. Patient reports tetanus is up to date. cp Will discharge to home for continued monitoring. 01/26 16:46 Order name: XRAY Shoulder LEFT 2 view; Complete Time: 17:46 cp 01/26 16:46 Order name: Wound dressing: burn wounds to left hand and forearm cp 01/26 17:25 Order name: Sling; Complete Time: 18:32 cp Administered Medications: 17:30 Drug: Ibuprofen 800 mg Route: PO; sg 17:30 Drug: Tylenol 650 mg Route: PO; sg Disposition: 01/26/19 17:51 Discharged to Home. Impression: Burn of first degree of back of left hand, Burn of first degree of left forearm, Pain in left shoulder. - Condition is Stable. - Discharge Instructions: Burn Care, Adult, Shoulder Pain, Shoulder Range of Motion Exercises. - Prescriptions for Ibuprofen 800 mg Oral Tablet - take 1 tablet by ORAL route every 8 hours As needed take with food; 30 tablet. Tramadol 50 mg Oral Tablet - take 1 tablet by ORAL route every 8 hours As needed as needed. no driving while taking medication; 15 tablet. Silvadene 1 % Topical Cream - Apply to affected area 1 application by TOPICAL route every 12 hours As needed apply to areas of burn as directed and cover with dry guaze; 50 gram. Cyclobenzaprine 10 mg Oral Tablet - take 1 tablet by ORAL route every 8 hours As needed no driving while taking medication; 20 tablet. - Medication Reconciliation Form, Thank You Letter, Antibiotic Education, Prescription Opioid Use form. - Follow up: Private Physician; When: 2 - 3 days; Reason: Recheck today's complaints. - Problem is new. - Symptoms have improved. Addendum: 01/28/2019 16:00 Co-signature as Attending Physician, Todd Martin MD I agree with the assessment and k dr plan of care. Signatures: Dispatcher [employer] Chente Gonzalez, RN RN Todd Martin MD MD [facility] Evin Pack PA PA Phoebe Cole RN RN tw2 Corrections: (The following items were deleted from the chart) 01/26 18:32 17:51 01/26/2019 17:51 Discharged to Home. Impression: Burn of first degree of back of sg left hand; Burn of first degree of left forearm; Pain in left shoulder. Condition is Stable. Forms are Medication Reconciliation Form, Thank You Letter, Antibiotic Education, Prescription Opioid Use. Follow up: Private Physician; When: 2 - 3 days; Reason: Recheck today's complaints. Problem is new. Symptoms have improved. cp
--- NOTE | 2019-01-26 17:52 | ER ---
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 Transition of care: patient was not received from another setting of care. Onset of symptoms was January 26, 2019. Risk Assessment: Do you want to hurt yourself or someone else? Patient reports no desire to harm self or others. Initial Sepsis Screen: Does the patient meet any 2 criteria? No. Patient's initial sepsis screen is negative. Does the patient have a suspected source of infection? No. Patient's initial sepsis screen is negative. Care prior to arrival: None. 16:16 Method Of Arrival: Ambulatory tw2 16:16 Acuity: DANIEL 3 tw2 Triage Assessment: 16:20 General: Appears in no apparent distress. obese, Behavior is calm, cooperative, tw2 appropriate for age. Pain: Complains of pain in left arm. Respiratory: Airway is patent Respiratory effort is even, unlabored, Respiratory pattern is regular, symmetrical. Injury Description: Burn was sustained 1-2 hours ago. Historical: - Allergies: 16:20 Percocet; tw2 - Home Meds: 16:20 Keppra 500 mg Oral tab 1 tab 2 times per day [Active]; Zoloft 50 mg Oral tab 1 tab once tw2 daily [Active]; - PMHx: 16:20 CAD; CHF; Depression; GERD; Hypertension; High Cholesterol; Myocardial infarction; tw2 - Immunization history:: Adult Immunizations Last tetanus immunization: < 5 years ago. - Social history:: Smoking status: . - Ebola Screening: : Patient denies travel to an Ebola-affected area in the 21 days before illness onset. Screenin:00 Abuse screen: Denies threats or abuse. Denies injuries from another. Nutritional sg screening: No deficits noted. Tuberculosis screening: No symptoms or risk factors identified. Never had TB. Fall Risk None identified. Assessment: 17:00 General: Appears in no apparent distress. well groomed, well developed, well nourished, sg Behavior is calm, cooperative, appropriate for age. Pain: Complains of pain in anterior aspect of left shoulder Quality of pain is described as aching. Neuro: Level of Consciousness is awake, alert, obeys commands, Oriented to person, place, time, Telephone Betting Clerk are equal bilaterally Moves all extremities. Full function Speech is normal, Facial symmetry appears normal. Cardiovascular: Capillary refill is brisk in bilateral fingers Patient's skin is warm and dry. Chest pain is denied. Respiratory: Airway is patent Respiratory effort is even, unlabored, Respiratory pattern is regular, symmetrical, Breath sounds are clear. GI: Abdomen is round non-distended, Reports tolerance of fluids, tolerance of food. : No signs and/or symptoms were reported regarding the genitourinary system. EENT: No signs and/or symptoms were reported regarding the EENT system. Derm: Skin is intact, is healthy with good turgor, Skin is dry, Skin is normal, Skin temperature is warm Rash noted that is red, on dorsal aspect of left forearm and left wrist. Musculoskeletal: Circulation, motion, and sensation intact. Range of motion: intact in all extremities, Reports pain in anterior aspect of left shoulder. Vital Signs: 16:19 BP 127 / 90; Pulse 105; Resp 17; Temp 98(TE); Pulse Ox 99% on R/A; Weight 151.95 kg tw2 (R); Height 5 ft. 7 in. (170.18 cm); Pain 8/10; 18:00 BP 122 / 88; Pulse 87; Resp 16; Temp 98.2; Pulse Ox 99% on R/A; Pain 3/10; sg 16:19 Body Mass Index 52.47 (151.95 kg, 170.18 cm) tw2 ED Course: 16:05 Patient arrived in ED. ag5 16:05 Unknown, Unknown is Private Physician. ag5 16:19 Triage completed. tw2 16:19 Arm band placed on. tw2 16:21 [facility] cp 16:21 Todd Martin MD is Attending Physician. cp 17:00 Patient has correct armband on for positive identification. Bed in low position. Call sg light in reach. Side rails up X2. Pulse ox on. NIBP on. Head of bed elevated. 17:09 XRAY Shoulder LEFT 2 view In Process Unspecified. EDMS 17:21 Chente Huston, RN is Primary Nurse. sg 17:55 No provider procedures requiring assistance completed. Patient did not have IV access sg during this emergency room visit. Dressings: non-adherent dressing x 2 left arm fluffy dressing applied prior to application of sling to left arm. Burn care of first degree burn to right wrist, dorsal aspect of left forearm and left wrist washed, Silvadene applied. 18:00 Sling applied to left arm. sg Administered Medications: 17:30 Drug: Ibuprofen 800 mg Route: PO; sg 17:30 Drug: Tylenol 650 mg Route: PO; sg Outcome: 17:51 Discharge ordered by MD. cp 18:30 Discharged to home ambulatory. sg 18:30 Condition: good 18:30 Discharge instructions given to patient, Instructed on discharge instructions, follow up and referral plans. medication usage, safety practices, wound care, Demonstrated understanding of instructions, follow-up care, medications, wound care, Prescriptions given X 4. 18:32 Patient left the ED. sg Signatures: Dispatcher [employer] EDCT Chente Huston, RN RN Evin Pack PA PA cp Wise, Tara RN RN tw2 Fabiana Ring ag5 Corrections: (The following items were deleted from the chart) 17:44 07:30 Tylenol 650 mg PO sg sg
[2019-01-26] MEDS ORDERED: SILVER SULFADIAZINE 1% 25 GM TOP ONE (18:12)
[2019-01-26 19:58] VITALS: BP 127/90; TEMP 98; O2SAT 99
== END 2019-01-26 18:32 | disposition home or self-care (01) ==
LOC: ER 16:01
DX: T23.162A Burn of first degree of back of left hand, initial encounter (principal); T22.112A Burn of first degree of left forearm, initial encounter; T31.0 Burns involving less than 10% of body surface; X10.2XXA Contact with fats and cooking oils, initial encounter; Y93.89 Activity, other specified; Y92.89 Other specified places as the place of occurrence of the external cause; Y99.8 Other external cause status; Z88.5 Allergy status to narcotic agent; I10 Essential (primary) hypertension; F32.9 Major depressive disorder, single episode, unspecified; I25.2 Old myocardial infarction
CPT/HCPCS: 99284